=== PATIENT | male | born 1980 | race Two or more races ===

== ENCOUNTER 2017-02-07 04:56 | Emergency (ER) | payer SELFPAY ==
[~2017-02-07] VITALS: Ht 167.6 cm; Wt 84.4 kg
[2017-02-07 04:56] VITALS: BP 148/98
--- NOTE | 2017-02-07 05:09 | Emergency Room Report ---
History of Present Illness General Chief Complaint: Alcohol Intoxication Source: Patient Present Illness HPI 36YOM BIBEMS for acute ETOH intox from street No drug use Atraumatic Patient laughing hysterically, +AOB Not participating with additional HPI at this time Allergies: Coded Allergies: No Known Allergies (Unverified , 02/07/17) Patient History Past Medical History: none Past Surgical History: none Social History: Reports: alcohol use Immunizations: UTD Reviewed Nursing Documentation: PMH: Agreed, PSxH: Agreed Nursing Documentation-PMH Past Medical History: No Stated History Review of Systems All Other Systems: negative except mentioned in HPI Physical Exam Vital Signs Date Time Temp Pulse Resp B/P (MAP) Pulse Ox O2 Delivery O2 Flow Rate FiO2 02/07/17 04:50 98.4 98 16 148/98 97 Sp02 EP Interpretation: reviewed, normal General Appearance: normal inspection, well appearing, no apparent distress, alert, GCS 15, non-toxic, other - +AOB Head: normocephalic, atraumatic Eyes: bilateral eye PERRL, bilateral eye EOMI ENT: normal ENT inspection, hearing grossly normal, normal voice Neck: normal inspection, full range of motion, supple, no bony tend Respiratory: normal inspection, lungs clear, normal breath sounds, no respiratory distress, no retraction, no wheezing Cardiovascular #1: regular rate, rhythm, no edema Gastrointestinal: normal inspection, normal bowel sounds, non tender, soft, no guarding, no hernia Genitourinary: no CVA tenderness Musculoskeletal: normal inspection, back normal, normal range of motion, Bonny' s Sign negative Neurologic: normal inspection, alert, oriented x3, responsive, business development recruiter III-XII nml as tested, motor strength/tone normal, speech normal Psychiatric: normal inspection, judgement/insight normal, mood/affect normal Skin: normal inspection, normal color, no rash Lymphatic: normal inspection Medical Decision Making Diagnostic Impression: Primary Impression: Acute alcoholic intoxication Qualified Codes: F10.929 - Alcohol use, unspecified with intoxication, unspecified ER Course VSS. Afebrile Atraumatic No drug use Provided safe place for sobriety Still intoxicated at signout at [address] Matthew at 630am Last Vital Signs Date Time Temp Pulse Resp B/P (MAP) Pulse Ox O2 Delivery O2 Flow Rate FiO2 02/07/17 04:50 98.4 98 16 148/98 97 Status: improved Disposition: HOME, SELF-CARE KARTIK VAUGHN M.D. Feb 07, 2017 05:09
[2017-02-07 09:08] VITALS: BP 139/86
[2017-02-07 09:10] VITALS: BP 139/86
== END 2017-02-07 09:11 | disposition home or self-care (01) ==
LOC: EDBD 04:56 → EMR 05:20
DX: F10.129 Alcohol abuse with intoxication, unspecified (principal)
CPT/HCPCS: 99283